=== PATIENT | male | born 1995 | race African-American/Black ===

== ENCOUNTER 2023-04-23 13:02 | Emergency (ER) | payer SELFPAY ==
[~2023-04-23] VITALS: Ht 177.8 cm; Wt 97.0 kg
[2023-04-23] MEDS ORDERED: IBUPROFEN 600MG TABLET PO ONE (14:15)
[2023-04-23] MEDS ORDERED: METHOCARBAMOL 500MG TABLET PO ONE (14:15)
[2023-04-23 14:25] VITALS: O2SAT 99
[2023-04-23] MEDS ORDERED: METH-653 MT (14:26)
[2023-04-23] MEDS ORDERED: IBUP-2029 MT (14:26)
[2023-04-23 15:33] VITALS: BP 128/82
[2023-04-23 15:46] VITALS: PULSE 98; RESP 18; TEMP 97.9
== END 2023-04-23 15:48 | disposition home or self-care (01) ==
LOC: ER 13:14
DX: S29.012A Strain of muscle and tendon of back wall of thorax, initial encounter (principal); X58.XXXA Exposure to other specified factors, initial encounter; Y93.89 Activity, other specified; Y92.89 Other specified places as the place of occurrence of the external cause; Y99.8 Other external cause status
CPT/HCPCS: 71045; 99283